=== PATIENT | female | born 1985 | race Two or more races ===

== ENCOUNTER 2024-05-24 12:50 | Emergency (ER) | payer OTHER ==
[~2024-05-24] VITALS: Ht 160 cm; Wt 61.7 kg
[2024-05-24] MEDS ORDERED: LIDOCAINE HCL 1% 10ML VIAL PERCUT ONE (14:30)
[2024-05-24] MEDS ORDERED: DUI500 PO (15:14)
[2024-05-24] MEDS ORDERED: CEFTRIAXONE SODIUM 1,000 MG VIAL IM ONE (15:15)
== END 2024-05-24 15:31 | disposition home or self-care (01) ==
LOC: ER 12:52
DX: S61.220A Laceration with foreign body of right index finger without damage to nail, initial encounter (principal); W25.XXXA Contact with sharp glass, initial encounter; Y93.89 Activity, other specified; Y92.010 Kitchen of single-family (private) house as the place of occurrence of the external cause

== ENCOUNTER 2025-01-24 04:03 | Emergency (ER) | payer OTHER ==
[~2025-01-24] VITALS: Ht 167.6 cm; Wt 59.0 kg
[~2025-01-24 04:03] MED LIST: DUI500 PO
[2025-01-24 04:23] VITALS: BP 116/79; O2SAT 100
[2025-01-24] MEDS ORDERED: METHYLPREDNISOLONE SOD SUCC 125 MG VIAL IM STA (04:50)
[2025-01-24] MEDS ORDERED: DIPHENHYDRAMINE HCL 50 MG/ML VIAL 1ML IM STA (04:50)
[2025-01-24] MEDS ORDERED: DIPHENHYDRAMINE HCL 50 MG/ML VIAL 1ML IV STA (04:51)
[2025-01-24] MEDS ORDERED: METHYLPREDNISOLONE SOD SUCC 125 MG VIAL IV STA (04:51)
[2025-01-24] MEDS ORDERED: FAMOtidine 10 MG/ML (4ML VIAL) IV PUSH STA (04:52)
[2025-01-24] MEDS ORDERED: EPINEPHRINE HCL/PF 1 MG/ML AMPUL SUBCUTANEO STA (04:52)
[2025-01-24] MEDS ORDERED: EPINEPHRINE HCL/PF 1 MG/ML AMPUL ONE (04:59)
[2025-01-24] MEDS ORDERED: FAMOTIDINE/PF 20 MG/2 ML VIAL ONE (05:00)
[2025-01-24] MEDS ORDERED: DIPHENHYDRAMINE HCL 50 MG/ML VIAL 1ML ONE (05:00)
[2025-01-24] MEDS ORDERED: METHYLPREDNISOLONE SOD SUCC 125 MG VIAL ONE (05:00)
== END 2025-01-24 06:45 | disposition home or self-care (01) ==
LOC: ER 04:03
DX: L50.9 Urticaria, unspecified (principal)